=== PATIENT | male | born 1950 | race Caucasian/White ===

== ENCOUNTER → 2019-07-24 15:50 | Outpatient (CLI) | payer OTHER, MEDICARE, SELFPAY ==
--- NOTE | 2019-07-24 | DI.ECHO.S_ITS ---
[facility] +---------+ Hospital +---------+ : : [address] : : : : [id number] : : : : Phone: [phone] Echocardiogram Report + + :Name: TIARRA SOLOMON Study Date: 07/24/2019 Height: 69 in : :[facility] Weight: 244 lb : : Gender: Male BSA: 2.2 m2 : :: 1950 Age: 68 yrs BP: 142/84 mmHg: :Reason For Study: CAD : : Performed By: Star Moscoso : :Referring: MARIE CORDOVA : + + Interpretation Summary Left ventricular systolic function is mildly reduced, 51% by biplane method. The basal to mid inferolateral wall is scarred and akinetic. The basal to mid inferior and inferoseptal wall is hypokinetic. The right ventricle is mildly dilated. Right ventricular systolic function is at the lower limits of normal. There is a mechanical mitral valve with mean gradient of 4 mmHg at heart rate of 58 bpm which is normal for this valve. the peak velocity is 1.4 m/s. No significant mitral regurgitation. There is no prior echocardiogram noted for this patient. Procedure: A two-dimensional transthoracic echocardiogram with color flow and Doppler was performed. The study quality was technically adequate. A contrast injection of Definity was performed to improve assessment of LV function. There is no prior echocardiogram noted for this patient. The patient was in normal sinus rhythm during the exam. Left Ventricle: The left ventricle is mildly dilated. There is normal left ventricular wall thickness. Left ventricular ejection fraction is estimated to be 50%. The basal to mid inferolateral wall is scarred and akinetic. The basal to mid inferior and inferoseptal wall is hypokinetic. Diastolic parameters suggest a relaxation abnormality of the left ventricle, consistent with probable normal filling pressures. Right Ventricle: The right ventricle is mildly dilated. Right ventricular systolic function is at the lower limits of normal. Atria: The left atrium is not well visualized. The right atrium is mildly dilated. There is no Doppler evidence for an interatrial shunt. Mitral Valve: There is a mechanical mitral valve. The valve cannot be adequately evaluated due to artifact. The mitral valve mean gradient is 4 mmHg. There is no mitral regurgitation noted. Aortic Valve: There is mild aortic valve sclerosis. The aortic valve is trileaflet. The aortic valve opens well. No aortic regurgitation is present. Tricuspid Valve: The tricuspid valve is normal in structure and function. There is trace tricuspid regurgitation. Pulmonary artery pressures cannot be estimated because of the lack of a measurable TR jet velocity. Pulmonic Valve: The pulmonic valve is not well visualized. There is mild to moderate pulmonic regurgitation. Great Vessels: The aortic root is normal size. The dimensions of the ascending aorta are normal. The pulmonary artery is normal size. The inferior vena cava was not well visualized. Pericardium/ Pleura There is no pericardial effusion. There is no pleural effusion. MMode/2D Measurements & Calculations LVIDd: 5.9 cm LVOT diam: 2.1 cm LVIDs: 4.8 cm Ao root diam: 3.1 cm FS: 18.7 % asc Aorta Diam: 3.0 cm IVSd: 1.1 cm LVPWd: 0.96 cm LV mayer. diameter/BSA (cm/m^2): 2.6 LV sys. diameter/BSA (cm/m^2): 2.1 RA long axis: 4.8 cm TAPSE: 1.8 cm RA area: 17.5 cm2 RA vol: 53.9 ml RA : 24.0 ml/m2 LVAd ap4: 38.2 cm2 LVAs ap4: 23.5 cm2 LVLs ap4: 8.7 cm Doppler Measurements & Calculations Ao V2 max: 111.2 cm/sec LVOT Max Herb: 78.1 cm/sec Ao V2 mean: 84.0 cm/sec LV V1 max P.4 mmHg Ao max P.9 mmHg LV V1 VTI: 19.4 cm Ao mean P.2 mmHg ABDIAS(I,D): 2.7 cm2 Ao V2 VTI: 25.2 cm ABDIAS(V,D): 2.5 cm2 sev ratio: 0.77 ABDIAS indexed to BSA (cm^2/m^2): 1.2 MV E max herb: 117.8 cm/sec PA V2 max: 70.4 cm/sec MV A max herb: 136.6 cm/sec PA V2 mean: 51.5 cm/sec MV E/A: 0.86 PA mean P.2 mmHg Med Peak E' Herb: 6.3 cm/sec PA Accel Time: 0.11 sec E/E' med: 18.7 Lat Peak E' Herb: 5.5 cm/sec E/E' lat: 21.2 E/e' average: 20.0 MV dec time: 0.45 sec MVA(VTI): 1.4 cm2 MV V2 mean: 93.1 cm/sec SV(LVOT): 68.4 ml MV mean P.8 mmHg MV V2 VTI: 47.5 cm MV P1/2t-pr_phl: 137.9 msec Electronically signed by: Jeb Agosto M.D. on Reading Physician:07/24/2019 07:20 PM
== END ==
PROVIDERS: Family Provider Family Medicine; PCP Family Medicine; Referring Provider Internal Medicine Cardiovascular Disease; Visit Provider Physician Assistant
DX: I35.8 Other nonrheumatic aortic valve disorders (principal); I37.1 Nonrheumatic pulmonary valve insufficiency; I25.10 Atherosclerotic heart disease of native coronary artery without angina pectoris
CPT/HCPCS: 93306; Q9957

== ENCOUNTER 2020-03-22 12:07 | Observation (INO) | payer MEDICARE, OTHER, SELFPAY ==
[2020-03-22] VITALS (13 sets, daily range): BP systolic 102–127; BP diastolic 63–72; PULSE 74–95; RESP 12–20; TEMP 36.7–37.3; O2SAT 96–100; BMI 31.0
--- NOTE | 2020-03-22 12:38 | ED.GIBLEED ---
HPI - GI Bleed General Chief complaint: GI Bleed Stated complaint: blood in urine/stool Time Seen by Provider: 03/22/20 12:28 Source: patient Mode of arrival: Ambulatory Limitations: no limitations History of Present Illness HPI Narrative: Patient is a 69-year-old male on Coumadin for mitral valve presenting with bright red bloody stools. He said he had multiple episodes yesterday and he has had at least 5 today. He has even shown me picture of them. He denies any dizziness lightheadedness shortness of breath heart palpitations or abdominal pain. He actually had a prostate biopsy done week ago he was bridging with Lovenox but is back on Coumadin. MD complaint: gross hematochezia Related Data Home Medications Medication Instructions Recorded Confirmed atorvastatin 40 mg tablet 40 mg PO DAILY 01/23/20 03/22/20 benazepril 5 mg tablet 5 mg PO DAILY 01/23/20 03/22/20 furosemide 20 mg tablet 10 mg PO QAM 01/23/20 03/22/20 metoprolol tartrate 25 mg tablet 25 mg PO DAILY 01/23/20 03/22/20 spironolactone 25 mg tablet 25 mg PO DAILY 01/23/20 03/22/20 warfarin 5 mg tablet 5 mg PO DAILY 01/23/20 03/22/20 insulin glargine [Basaglar KwikPen 30 unit SUBCUT BEDTIME 03/22/20 03/22/20 U-100 Insulin] Allergies Allergy/AdvReac Type Severity Reaction Status Date / Time No Known Drug Allergies Allergy Verified 03/22/20 12:17 Review of Systems Review of Systems Narrative: GENERAL: Denies chills, fatigue, malaise, fever, sweats, travel HEENT: Denies sinus pain, ear pain, sore throat, difficulty swallowing, neck pain RESPIRATORY: Denies dyspnea, cough, wheezing, hemoptysis, sputum. CARDIOVASCULAR: Denies chest pain, palpitations, orthopnea, edema GASTROINTESTINAL: See HPI : Denies dysuria, frequency, incontinence, hematuria, urinary retention, flank pain. MUSCULOSKELETAL: Denies weakness, joint pain, or bony pain SKIN: No rash, no erythema, no pruritus NEUROLOGIC: Denies weakness, dizziness, headache, numbness, change in speech, confusion PSYCHIATRIC: No concerning psychosocial issues. 12 point review of systems is negative except for those stated above and HPI Patient History Medical History Allergic rhinitis (Chronic) Bypass graft stenosis (Acute) CAD (coronary artery disease) (Chronic) CHF (congestive heart failure) (Acute) Cholecystectomy planned (Acute) Chronic pain syndrome (Chronic) COPD (chronic obstructive pulmonary disease) (Chronic) Coronary stent patent (Acute) Degenerative joint disease (DJD) of lumbar spine (Chronic) Elevated PSA (Acute) Elevated PSA (Acute) HTN (hypertension), benign (Chronic) Kidney stone (Acute) Lumbar radiculopathy (Acute) Obesity (BMI 30-39.9) (Chronic Unknown) Obstructive sleep apnea (Chronic ~1999) Osteoarthritis of both knees (Chronic) Spondylolisthesis (Chronic) Spondylolisthesis at L4-L5 level (Acute) TIA (transient ischemic attack) (Acute) Ventral hernia (Chronic) Surgical History Coronary angioplasty status (Acute) H/O mitral valve replacement (Acute) H/O mitral valve replacement with mechanical valve (Acute) Heart valve replaced (Acute) Vasectomy status (Acute) Social History household members: spouse Smoking Status: Former smoker alcohol intake: current caffeine: Yes Smoking Status: Former smoker alcohol intake frequency: 0-2 drinks per day Substance Use Type: does not use Exam Initial Vital Signs Initial Vital Signs: Vital Signs Temperature 98.1 F 03/22/20 12:13 Pulse Rate 95 H 03/22/20 12:13 Respiratory Rate 18 03/22/20 12:13 Blood Pressure 127/72 03/22/20 12:13 Pulse Oximetry 98 03/22/20 12:13 GENERAL: Alert well-appearing middle-aged male and in no acute distress. HEENT: Head atraumatic,EOMI, pupils reactive, face symmetric, moist mucous membranes CARDIOVASCULAR: Regular rate and rhythm without murmurs, rubs or gallops. RESPIRATORY: Breath sounds equal bilaterally, no wheezes rales or rhonchi. ABDOMEN: Soft, nontender. Normoactive bowel sounds all 4 quadrants. No guarding or rebound. RECTAL: deferred + photo EXTREMITIES: Normal range of motion, no clubbing or edema. Neurovascularly intact NEUROLOGICAL: Alert and oriented x4.Normal gait and speech. Cranial nerves II through XII grossly intact. SKIN: Bruising noted on abdomen Course Orders Ordered: ED Orders 03/22/20 12:26 EKG-12 Lead Stat 03/22/20 12:46 Complete Blood Count AUTO DIFF Stat Comprehensive Metabolic Panel Stat Lactate (Lactic Acid) Stat Partial Thromboplastin Time Stat Prothrombin Time INR Stat 03/22/20 13:37 CT chest abd pel w con Stat 03/22/20 13:48 COVID19 -ED/INPAT/OR/L&D Stat 03/22/20 14:30 Urine Culture Stat Urine Microscopic Stat Lactated Ringer's (Lactated Ringers) 1,000 mls @ 42 mls/hr IV NOW ONE Stop: 03/23/20 16:47 Last Infusion: 03/22/20 19:15 Dose: 0 mls/hr Documented by: Admin: 03/22/20 17:00 Dose: 42 mls/hr Documented by: SNOW Morphine Sulfate (Morphine) 2 mg IV Q4HR PRN PRN Reason: Pain, Moderate (4-6) Naloxone HCl (Narcan) 0.2 mg IV Q2MIN PRN PRN Reason: Opiate Reversal Ondansetron HCl (Zofran) 4 mg IV Q8HR PRN PRN Reason: Nausea And Vomiting Discontinued Medications Fentanyl (Sublimaze) 250 mcg IV NOW ONE Stop: 03/22/20 19:05 Last Admin: 03/22/20 19:04 Dose: 150 mcg Documented by: CLARA Midazolam HCl (Versed) 5 mg IV NOW ONE Stop: 03/22/20 19:03 Last Admin: 03/22/20 19:03 Dose: 5 mg Documented by: CLARA Pantoprazole Sodium (Protonix) 80 mg IV NOW ONE Stop: 03/22/20 12:19 Last Admin: 03/22/20 12:53 Dose: 80 mg Documented by: DINORAH Phytonadione (Mephyton) 5 mg PO NOW ONE Stop: 03/22/20 13:26 Last Admin: 03/22/20 13:30 Dose: 5 mg Documented by: DINORAH Vital Signs Vital signs: Vital Signs - 8 hr 03/22/20 12:13 03/22/20 12:24 03/22/20 12:30 Temperature 98.1 F Pulse Rate 95 H 83 81 Respiratory Rate 18 15 15 Blood Pressure 127/72 120/69 111/64 Pulse Oximetry 98 100 98 03/22/20 13:00 03/22/20 13:30 03/22/20 14:00 Temperature Pulse Rate 78 78 74 Respiratory Rate 12 17 17 Blood Pressure 106/66 115/64 Pulse Oximetry 97 100 100 MDM - GI Bleed Lab Data Attestation: I reviewed the patient's lab results. Result diagrams: 03/22/20 12:46 03/22/20 12:46 Labs: Lab Results 03/22/20 03/22/20 03/22/20 Range/Units 12:46 12:46 12:46 WBC 10.2 (4.5-11.0) X10^3/uL RBC 4.46 L (4.5-5.9) X10^6/uL Hgb 12.1 L (13.5-17.5) g/dL Hct 35.7 L (41-53) % MCV 80.2 (80-100) fL MCH 27.2 (26-34) PG MCHC 33.9 (30-36) % RDW 14.6 (11.6-14.8) % Plt Count 402 H (150-400) X10^3/uL Neut % (Auto) 72.2 (50-75) % Lymph % (Auto) 15.9 L (25-40) % Victoria % (Auto) 9.0 (3-14) % Eos % (Auto) 1.5 L (2-4) % Baso % (Auto) 1.4 (0-2) % Neut # (Auto) 7400 H (3136-3436) /uL Lymph # (Auto) 1600 (0403-4699) /uL Victoria # (Auto) 900 (0-900) /uL Eos # (Auto) 200 (0-450) /uL Baso # (Auto) 100 (0-100) /uL PT 58.0 H (10.1-12.7) SECONDS INR 4.9 H* (0.9-1.3) APTT 49 H (26.4-36.2) SECONDS Sodium 133 L (137-145) mmol/L Potassium 4.3 (3.4-5.1) mmol/L Chloride 99 (98-107) mmol/L Carbon Dioxide 27 (22-32) mmol/L BUN 16 (9-20) mg/dL Creatinine 1.00 (0.66-1.25) mg/dL Estimated GFR > 60.0 (>60) mL/min BUN/Creatinine Ratio 16.0 (6-22) Glucose 159 H (80-110) mg/dL Lactate (0.7-2.1) mmol/L Calcium 9.1 (8.4-10.2) mg/dL Total Bilirubin 0.7 (0.2-1.3) mg/dL AST 40 (17-59) IU/L ALT 66 H (<50) IU/L Alkaline Phosphatase 418 H (38-126) U/L Total Protein 7.6 (6.3-8.2) g/dL Albumin 3.7 (3.5-5.0) g/dL Globulin 3.9 (1.7-4.1) g/dL Albumin/Globulin Ratio 0.9 L (1.0-2.8) Urine RBC (0-5/HPF) Urine WBC (0-5/HPF) Urine Bacteria (None) Ur Culture Indicated? COVID-19 PCR (Negative) 03/22/20 03/22/20 03/22/20 Range/Units 12:46 13:48 14:30 WBC (4.5-11.0) X10^3/uL RBC (4.5-5.9) X10^6/uL Hgb (13.5-17.5) g/dL Hct (41-53) % MCV (80-100) fL MCH (26-34) PG MCHC (30-36) % RDW (11.6-14.8) % Plt Count (150-400) X10^3/uL Neut % (Auto) (50-75) % Lymph % (Auto) (25-40) % Victoria % (Auto) (3-14) % Eos % (Auto) (2-4) % Baso % (Auto) (0-2) % Neut # (Auto) (6665-9198) /uL Lymph # (Auto) (5483-9353) /uL Victoria # (Auto) (0-900) /uL Eos # (Auto) (0-450) /uL Baso # (Auto) (0-100) /uL PT (10.1-12.7) SECONDS INR (0.9-1.3) APTT (26.4-36.2) SECONDS Sodium (137-145) mmol/L Potassium (3.4-5.1) mmol/L Chloride (98-107) mmol/L Carbon Dioxide (22-32) mmol/L BUN (9-20) mg/dL Creatinine (0.66-1.25) mg/dL Estimated GFR (>60) mL/min BUN/Creatinine Ratio (6-22) Glucose (80-110) mg/dL Lactate 1.0 (0.7-2.1) mmol/L Calcium (8.4-10.2) mg/dL Total Bilirubin (0.2-1.3) mg/dL AST (17-59) IU/L ALT (<50) IU/L Alkaline Phosphatase (38-126) U/L Total Protein (6.3-8.2) g/dL Albumin (3.5-5.0) g/dL Globulin (1.7-4.1) g/dL Albumin/Globulin Ratio (1.0-2.8) Urine RBC >100/hpf H (0-5/HPF) Urine WBC 5-10/hpf H (0-5/HPF) Urine Bacteria Occasional (0-1) (None) Ur Culture Indicated? Specimen cultured COVID-19 PCR Negative (Negative) Urine Dip Bedside Urine Glucose Negative Bedside Urine Bilirubin - Negative Bedside Urine Ketone - Negative Urine Specific [place] 1.005 Bedside Urine Occult Blood +++ Bedside Urine pH 7.0 Bedside Urine Protein - Negative Bedside Urine Urobilinogen +/- 1mg Bedside Urine Nitrite - Negative Bedside Urine Leukocytes - Negative Esterase Imaging Data CT scan - abdomen/pelvis: Radiologist's Impression: PROCEDURE: CT CHEST ABD PEL W CON INDICATIONS: prostate cancer screen and GI bleed TECHNIQUE: After the administration of intravenous contrast, 5 mm thick sections acquired from the lung apices to the symphysis. 5 mm coronal and sagittal reformats were performed, with additional 7 mm MIP reformats through the lungs. For radiation dose reduction, the following was used: automated exposure control, adjustment of mA and/or kV according to patient size. COMPARISON: None. FINDINGS: Image quality: Excellent. CHEST: Lungs and pleura: No acute airspace opacities. 3 millimeters subpleural nodule noted in the left lung base (series 4, image 55). Apical predominant centrilobular emphysematous disease. No pleural effusions or pneumothorax. Central and peripheral airways appear patent and normal in caliber. Mediastinum: Heart size is normal. Atherosclerotic calcifications are noted in the aorta, great vessels and the coronary vasculature. Mitral valve prosthesis noted No pericardial effusion. No mediastinal or hilar adenopathy by size criteria. Thoracic aorta and central pulmonary arteries are normal in size. Esophagus is normal in caliber. Small hiatal hernia. Chest wall: No axillary or supraclavicular adenopathy by size criteria. Thyroid gland is normal. ABDOMEN: Solid organs: Liver is normal in size and enhancement. Gallbladder is surgically absent. Biliary system is non dilated. Pancreas enhances normally. Spleen is normal in size and enhancement. No adrenal nodules. Kidneys demonstrate normal size and enhancement, without hydronephrosis. 5.5 centimeter exophytic left renal cyst. Peritoneum and bowel: Bowel loops demonstrate normal caliber. Circumferential wall thickening involving the rectum. Scattered diverticuli noted in the colon without evidence of diverticulitis. No free fluid or air. The appendix is normal. Nodes and vessels: No retroperitoneal or mesenteric adenopathy by size criteria. Aorta and inferior vena cava are normal in size. Scattered atherosclerotic calcifications involving the abdominal and pelvic vasculature. Miscellaneous: No ventral hernias. PELVIS: Genitourinary: Bladder wall thickness is normal. Miscellaneous: No inguinal hernias or adenopathy. Bones: Scattered sclerotic lesions noted in the osseous skeleton most compatible with metastatic disease. No vertebral body compression fractures. IMPRESSION: 1. Circumferential wall thickening involving the rectum which could be secondary to inflammatory/infectious process versus neoplastic process including rectal carcinoma. Recommend sigmoidoscopy/colonoscopy or barium contrasted enema for further evaluation. 2. Numerous sclerotic lesions scattered throughout the osseous skeleton compatible with extensive osseous metastatic disease. 3. Colonic diverticulosis without evidence diverticulitis. 4. Atherosclerosis including the coronary vasculature. 5. 3 millimeter left lower lobe subpleural nodule. Recommend follow-up CT scan of the chest in 3 months. 6. No lymphadenopathy based on size criteria. Dictated by: Pamela Escalona MD, PhD on 03/22/2020 at 13:52 MDM Narrative Medical decision making narrative: Dr. Joyner called he did prostate biopsy 2 weeks ago. He said that there may been some issues with bridging Lovenox Coumadin. He has likely metastatic disease and has not yet had imaging for staging. Recommends chest abdomen pelvis. Dr. Cummins consulted, will scope later this evening Dr. salas accepts for admission Discharge Plan Departure Patient Disposition: Admitted as Observation Clinical Impression: Acute GI bleeding Discharge Date/Time: 03/22/20 16:17 Referrals: Tristin Guerra MD [Primary Care Provider] - Admit Date/Time: 03/22/20 14:47 Admit Provider: Ken Gomez
[2020-03-22] MEDS: PANTOPRAZOLE 40 MG VIAL 80 MG IV (12:53)
[2020-03-22 12:54] LABS: Add Manual Diff / Slide Review NO; Basophils Absolute Auto 100 /uL (0-100); Basophils Percent Auto 1.4 % (0-2); Eosinophils Absolute Auto 200 /uL (0-450); Eosinophils Percent Auto 1.5 % (2-4); Hematocrit 35.7 % (41-53); Hemoglobin 12.1 g/dL (13.5-17.5); Lymphocytes Absolute Auto 1600 /uL (1100-4500); Lymphocytes Percent Auto 15.9 % (25-40); Mean Corpuscular HGB Conc 33.9 % (30-36); Mean Corpuscular Hemoglobin 27.2 PG (26-34); Mean Corpuscular Volume 80.2 fL (80-100); Monocytes Absolute Auto 900 /uL (0-900); Neutrophils Absolute Auto 7400 /uL (1500-7000); Neutrophils Percent Auto 72.2 % (50-75); Platelet Count 402 X10^3/uL (150-400); Red Blood Cell Count 4.46 X10^6/uL (4.5-5.9); Red Cell Distribution Width 14.6 % (11.6-14.8); White Blood Cell Count 10.2 X10^3/uL (4.5-11.0)
[2020-03-22 13:04] LABS: PTT Partial Thromboplastin Tim 49 SECONDS (26.4-36.2)
[2020-03-22 13:06] LABS: Alanine Aminotransferase 66 IU/L (<50); Albumin 3.7 g/dL (3.5-5.0); Albumin Globulin Ratio 0.9 (1.0-2.8); Alkaline Phosphatase 418 U/L (38-126); Aspartate Aminotransferase 40 IU/L (17-59); Bilirubin Total 0.7 mg/dL (0.2-1.3); Blood Urea Nitrogen 16 mg/dL (9-20); Calcium 9.1 mg/dL (8.4-10.2); Carbon Dioxide 27 mmol/L (22-32); Chloride 99 mmol/L (98-107); Estimated Glomerular Filt Rate > 60.0 mL/min (>60); Globulin 3.9 g/dL (1.7-4.1); Glucose 159 mg/dL (80-110); HEMOLYSIS < 15 (0-50); Potassium 4.3 mmol/L (3.4-5.1); Sodium 133 mmol/L (137-145); Total Protein 7.6 g/dL (6.3-8.2)
[2020-03-22 13:22] LABS: INR 4.9 (0.9-1.3)
[2020-03-22] MEDS: PHYTONADIONE (VIT K1) 5 MG TABLET PO (13:30)
--- NOTE | 2020-03-22 13:37 | DI.CT.S_ITS ---
PROCEDURE: CT CHEST ABD PEL W CON INDICATIONS: prostate cancer screen and GI bleed TECHNIQUE: After the administration of intravenous contrast, 5 mm thick sections acquired from the lung apices to the symphysis. 5 mm coronal and sagittal reformats were performed, with additional 7 mm MIP reformats through the lungs. For radiation dose reduction, the following was used: automated exposure control, adjustment of mA and/or kV according to patient size. COMPARISON: None. FINDINGS: Image quality: Excellent. CHEST: Lungs and pleura: No acute airspace opacities. 3 millimeters subpleural nodule noted in the left lung base (series 4, image 55). Apical predominant centrilobular emphysematous disease. No pleural effusions or pneumothorax. Central and peripheral airways appear patent and normal in caliber. Mediastinum: Heart size is normal. Atherosclerotic calcifications are noted in the aorta, great vessels and the coronary vasculature. Mitral valve prosthesis noted No pericardial effusion. No mediastinal or hilar adenopathy by size criteria. Thoracic aorta and central pulmonary arteries are normal in size. Esophagus is normal in caliber. Small hiatal hernia. Chest wall: No axillary or supraclavicular adenopathy by size criteria. Thyroid gland is normal. ABDOMEN: Solid organs: Liver is normal in size and enhancement. Gallbladder is surgically absent. Biliary system is non dilated. Pancreas enhances normally. Spleen is normal in size and enhancement. No adrenal nodules. Kidneys demonstrate normal size and enhancement, without hydronephrosis. 5.5 centimeter exophytic left renal cyst. Peritoneum and bowel: Bowel loops demonstrate normal caliber. Circumferential wall thickening involving the rectum. Scattered diverticuli noted in the colon without evidence of diverticulitis. No free fluid or air. The appendix is normal. Nodes and vessels: No retroperitoneal or mesenteric adenopathy by size criteria. Aorta and inferior vena cava are normal in size. Scattered atherosclerotic calcifications involving the abdominal and pelvic vasculature. Miscellaneous: No ventral hernias. PELVIS: Genitourinary: Bladder wall thickness is normal. Miscellaneous: No inguinal hernias or adenopathy. Bones: Scattered sclerotic lesions noted in the osseous skeleton most compatible with metastatic disease. No vertebral body compression fractures. IMPRESSION: 1. Circumferential wall thickening involving the rectum which could be secondary to inflammatory/infectious process versus neoplastic process including rectal carcinoma. Recommend sigmoidoscopy/colonoscopy or barium contrasted enema for further evaluation. 2. Numerous sclerotic lesions scattered throughout the osseous skeleton compatible with extensive osseous metastatic disease. 3. Colonic diverticulosis without evidence diverticulitis. 4. Atherosclerosis including the coronary vasculature. 5. 3 millimeter left lower lobe subpleural nodule. Recommend follow-up CT scan of the chest in 3 months. 6. No lymphadenopathy based on size criteria. Dictated by: Pamela Escalona MD, PhD on 03/22/2020 at 13:52 Approved by: Pamela Escalona MD, PhD on 03/22/2020 at 14:02
--- NOTE | 2020-03-22 13:47 | PM.CN ---
History of Present Illness Consult details Date Patient Seen: 03/22/20 Time Patient Seen: 13:52 Chief complaint: blood in urine/stool Narrative: 69 y.o man on Warfarin for a mechanical mitral valve who is sp prostate biopsy 2 weeks ago now with blood per rectum. He was appropriately bridged with Lovenox to Warfarin for the procedure. He has been passing bright red blood for the past 2 days, INR today 4.9. No prior colonoscopy no history of intestinal malignancy. Meds Home Medications and Allergies Home Medications Medication Instructions Recorded Confirmed Type atorvastatin 40 mg tablet 40 mg PO DAILY 01/23/20 03/22/20 History benazepril 5 mg tablet 5 mg PO DAILY 01/23/20 03/22/20 History furosemide 20 mg tablet 10 mg PO QAM 01/23/20 03/22/20 History metoprolol tartrate 25 mg tablet 25 mg PO DAILY 01/23/20 03/22/20 History spironolactone 25 mg tablet 25 mg PO DAILY 01/23/20 03/22/20 History warfarin 5 mg tablet 5 mg PO DAILY 01/23/20 03/22/20 History insulin glargine [Basaglar KwikPen 30 unit SUBCUT BEDTIME 03/22/20 03/22/20 History U-100 Insulin] Allergies Allergy/AdvReac Type Severity Reaction Status Date / Time No Known Drug Allergies Allergy Verified 03/22/20 12:17 Review of Systems Review of Systems Narrative: A 10 point review of systems is negative except as noted in the HPI Exam Vital Signs (past 8 hours): - 03/22/20 12:13 03/22/20 12:24 03/22/20 12:30 Temperature 98.1 F Pulse Rate 95 H 83 81 Respiratory Rate 18 15 15 Blood Pressure 127/72 120/69 111/64 Pulse Oximetry 98 100 98 03/22/20 13:00 Temperature Pulse Rate 78 Respiratory Rate 12 Blood Pressure 106/66 Pulse Oximetry 97 Oxygen Delivery Method Room Air Narrative Exam Narrative: General-no acute distress, well nourished HEENT-moist mucous membranes, no scleral icterus Neck-supple, no lymphadenopathy Chest- non labored respirations, clear to auscultation bilaterally Cardiac-regular rate no peripheral edema Abdomen-soft, nontender, non distended Extremities-warm, well perfused Neurological-alert and oriented, no focal deficits Objective Labs Result Diagrams: 03/22/20 12:46 03/22/20 12:46 Labs: Laboratory Results - last 24 hr 03/22/20 03/22/20 03/22/20 12:46 12:46 12:46 WBC 10.2 RBC 4.46 L Hgb 12.1 L Hct 35.7 L MCV 80.2 MCH 27.2 MCHC 33.9 RDW 14.6 Plt Count 402 H Neut % (Auto) 72.2 Lymph % (Auto) 15.9 L Isabella % (Auto) 9.0 Eos % (Auto) 1.5 L Baso % (Auto) 1.4 Neut # (Auto) 7400 H Lymph # (Auto) 1600 Isabella # (Auto) 900 Eos # (Auto) 200 Baso # (Auto) 100 PT 58.0 H INR 4.9 H* APTT 49 H Sodium 133 L Potassium 4.3 Chloride 99 Carbon Dioxide 27 BUN 16 Creatinine 1.00 Estimated GFR > 60.0 BUN/Creatinine Ratio 16.0 Glucose 159 H Lactate Calcium 9.1 Total Bilirubin 0.7 AST 40 ALT 66 H Alkaline Phosphatase 418 H Total Protein 7.6 Albumin 3.7 Globulin 3.9 Albumin/Globulin Ratio 0.9 L 03/22/20 12:46 WBC RBC Hgb Hct MCV MCH MCHC RDW Plt Count Neut % (Auto) Lymph % (Auto) Isabella % (Auto) Eos % (Auto) Baso % (Auto) Neut # (Auto) Lymph # (Auto) Isabella # (Auto) Eos # (Auto) Baso # (Auto) PT INR APTT Sodium Potassium Chloride Carbon Dioxide BUN Creatinine Estimated GFR BUN/Creatinine Ratio Glucose Lactate 1.0 Calcium Total Bilirubin AST ALT Alkaline Phosphatase Total Protein Albumin Globulin Albumin/Globulin Ratio Assessment & Plan Assessment & Plan narrative: 69 y.o man on Warfarin for a mechanical mitral valve 2 weeks after a prostate biopsy admitted with bright red blood per rectum. Hemodynamically stable, Hct at admission 36, INR 4.9. Plan -NPO/IVF -Theraputic colonoscopy today -COVID testing -Transfuse as needed
[2020-03-22 14:12] LABS: COVID19 -Nasal RAPID Negative (Negative)
[2020-03-22 15:00] LABS: Bacteria Urine Occasional (0-1); Culture Indicated Urine Specimen Cultured; RBC Urine >100/HPF (0-5/HPF); WBC Urine 5-10/HPF (0-5/HPF)
--- NOTE | 2020-03-22 16:24 | PC.ADMIT ---
[email or web address] [facility] Unit D6 Admission Note: The patient,Keith Hsieh,69 y/o, was given written information regarding hospital policies, unit procedures and contact persons. Patient's smoking status: Former smoker. Vital Signs - 8 hr 03/22/20 12:13 03/22/20 12:24 03/22/20 12:30 Temperature 98.1 F Pulse Rate 95 H 83 81 Respiratory Rate 18 15 15 Blood Pressure 127/72 120/69 111/64 Pulse Oximetry 98 100 98 03/22/20 13:00 03/22/20 13:30 03/22/20 14:00 Temperature Pulse Rate 78 78 74 Respiratory Rate 12 17 17 Blood Pressure 106/66 115/64 Pulse Oximetry 97 100 100 03/22/20 15:05 Temperature Pulse Rate 77 Respiratory Rate 15 Blood Pressure 118/68 Pulse Oximetry 99 Patient up from ED via stretcher. Patient was able to get off of the stretcher and ambulate to the AC bed, gait was steady. PACU here at 1620 to take patient down for a colonoscopy, patient aware and agreeable. Patient was a A&O, calm and cooperative.
[2020-03-22] MEDS: LACTATED RINGERS 1,000 ML 42 ML IV (17:00)
--- NOTE | 2020-03-22 19:01 | PM.OP.ENDO ---
Operative Date/Time/Diagnoses Date of procedure: 03/22/20 Time of procedure: 19:01 Pre-op diagnosis: rectal bleeding Post-op diagnosis: same Procedure & Clinicians Study performed: sigmoidoscopy Same procedure as scheduled: Yes Indications: 69M on anticoagulation 2 weeks after prostate biopsy with rectal bleeding Surgeon: Sharad Cummins Procedure Notes SCOAP/Timeout: Performed Procedure in detail: Patient placed in left lateral recumbent position. Time out was performed. Procedural sedation was administered with Versed and Fentanyl. The colonoscopy scope was then placed into the anal canal the the lumen was insufflated with air. There was a large amount of clot within distal rectum. This was suctioned out and inspection demonstrated a persistent active bleeding source on the anterior aspect of the distal rectuml consistent with a prostate biopsy site. I attempted to use the loop electrocautery to cauterize source this was ineffective. Ultimately I placed two 11 mm hemoclips over the area of active bleeding and hemostasis was observed. Scope was carefully withdrawn. Sedation minutes: 20 Findings: other findings (rectal bleeding) Specimen(s): none sent Complications: none Impression: rectal bleeding Post-procedure Disposition: Acute Care
[2020-03-22] MEDS: MIDAZOLAM 5 MG/5 ML VIAL IV (19:03)
[2020-03-22] MEDS: fentaNYL 250 MCG/5 ML INJ IV (19:04)
[2020-03-22 20:39] LABS: Hemoglobin A1C% w Est Avg Glu 7.9 % (4.0-6.0)
--- NOTE | 2020-03-22 20:53 | PM.HP.1 ---
History of Present Illness History of Present Illness Date Patient Seen: 03/22/20 Time Patient Seen: 20:15 Chief complaint: blood in urine/stool Narrative: Keith Hsieh is a 69-year-old male with a history of mitral valve replacement and anticoagulated on warfarin, hypertension, coronary artery disease, atrial fibrillation, and prostate cancer developed rectal bleeding this morning. He had a prostate biopsy 2 weeks [address] and [address] Leal who directed him to come to the ED. He stated that he 1st noticed bleeding then had diarrhea and filled the toilet bowl full blood. He denies abdominal pain or cramping, nausea, shortness of breath, chest pain, dysuria or constipation. He is currently seen the local highway worker Dr. Rasmussen for new onset back pain and sciatica extending to his left leg. He states he was supposed to be having an MRI at some point in the near future. In the ED they did a CT scan of his chest, abdomen and pelvis which reported the followin. Circumferential wall thickening involving the rectum which could be secondary to inflammatory/infectious process versus neoplastic process including rectal carcinoma. Recommend sigmoidoscopy/colonoscopy or barium contrasted enema for further evaluation. 2. Numerous sclerotic lesions scattered throughout the osseous skeleton compatible with extensive osseous metastatic disease. 3. Colonic diverticulosis without evidence diverticulitis. 4. Atherosclerosis including the coronary vasculature. 5. 3 millimeter left lower lobe subpleural nodule. In the emergency department the patient was referred directly to surgery and was given vitamin K due to having a supratherapeutic INR of 4.9. He underwent sigmoidoscopy under general anesthesia which they did find bleeding add an active prostate biopsy site. Electric cautery was attempted but not successful and the patient's rectum was eventually clipped with success in stopping the bleeding. Currently the patient is afebrile, blood pressure is 102/67, heart rate 80, respiratory rate of 14, oxygen saturation of 99% on room air, he weighs 95.2 kg with a BMI of 31. WBC is 10.2, RBC 4.46, hemoglobin 12.1, hematocrit 35.7, platelet count of 402. He has an elevated INR of 4.9 and a PTT of 58, sodium is 133, potassium 4.3, chloride 99, CO2 27, BUN 16, creatinine 1.0, with a estimated GFR greater than 60, glucose is 159, he does have a hemoglobin A1c of 7.9, lactate is normal, calcium 9.1, bilirubin is 0.7, AST 40, ALT 66, alk-phos 118, there is presence of urine RBC and urine WBC and urine with small amount of bacteria that will be cultured, and the patient is COVID-19 negative. Patient History Medical History Allergic rhinitis (Chronic) Anticoagulated on warfarin (Acute) Bypass graft stenosis (Acute) CAD (coronary artery disease) (Chronic) CHF (congestive heart failure) (Acute) Cholecystectomy planned (Acute) Chronic pain syndrome (Chronic) COPD (chronic obstructive pulmonary disease) (Chronic) Coronary stent patent (Acute) Degenerative joint disease (DJD) of lumbar spine (Chronic) Elevated PSA (Acute) Elevated PSA (Acute) HTN (hypertension), benign (Chronic) Kidney stone (Acute) Lumbar radiculopathy (Acute) Obesity (BMI 30-39.9) (Chronic Unknown) Obstructive sleep apnea (Chronic ~1999) Osteoarthritis of both knees (Chronic) Spondylolisthesis (Chronic) Spondylolisthesis at L4-L5 level (Acute) TIA (transient ischemic attack) (Acute) Ventral hernia (Chronic) Surgical History Coronary angioplasty status (Acute) H/O mitral valve replacement (Acute) H/O mitral valve replacement with mechanical valve (Acute) Heart valve replaced (Acute) Vasectomy status (Acute) Family & Social History Family History Mother Alive and well Father Diabetes type 2, controlled Heart disease Grandfather Prostate cancer metastatic to bone Social History: household members spouse Prior Living Arrangements RV, currently building a home Safety & Behavioral: Feels Safe in Current Yes Environment Been Physically Hurt or No Threatened By a Person Suicidal Ideation Description None Suicide Plan Description No Plan Tobacco & Substance use: Smoking Status Former smoker 35+ year pack history, quit 20 years ago alcohol intake current alcohol intake frequency a few times a week Substance Use Type has tried CBD without effect on pain does not use Meds Home Medications and Allergies Home Medications Medication Instructions Recorded Confirmed Type atorvastatin 40 mg tablet 40 mg PO DAILY 01/23/20 03/22/20 History benazepril 5 mg tablet 5 mg PO DAILY 01/23/20 03/22/20 History furosemide 20 mg tablet 10 mg PO QAM 01/23/20 03/22/20 History metoprolol tartrate 25 mg tablet 25 mg PO DAILY 01/23/20 03/22/20 History spironolactone 25 mg tablet 25 mg PO DAILY 01/23/20 03/22/20 History warfarin 5 mg tablet 5 mg PO DAILY 01/23/20 03/22/20 History insulin glargine [Basaglar KwikPen 30 unit SUBCUT BEDTIME 03/22/20 03/22/20 History U-100 Insulin] Allergies Allergy/AdvReac Type Severity Reaction Status Date / Time No Known Drug Allergies Allergy Verified 03/22/20 12:17 Review of Systems Review of Systems ROS: Yes All systems reviewed with the patient and are negative except as otherwise documented Exam Vital Signs (past 8 hours): - 03/22/20 13:00 03/22/20 13:30 03/22/20 14:00 Temperature Pulse Rate 78 78 74 Respiratory Rate 12 17 17 Blood Pressure 106/66 115/64 Pulse Oximetry 97 100 100 03/22/20 15:05 03/22/20 16:05 03/22/20 16:34 Temperature 98.0 F 99.2 F Pulse Rate 77 75 88 Respiratory Rate 15 16 16 Blood Pressure 118/68 122/65 117/70 Pulse Oximetry 99 100 97 03/22/20 19:07 03/22/20 19:12 03/22/20 19:15 Temperature 98.2 F 98.0 F 98.0 F Pulse Rate 82 84 80 Respiratory Rate 20 17 14 Blood Pressure 102/63 118/66 102/67 Pulse Oximetry 96 98 99 Oxygen Delivery Method Room Air Oxygen Flow Rate 0 Narrative Exam Narrative: Gen: Alert, oriented, well-developed 69 y.o. male, just came up from the PACU HEENT: normocephalic, atraumatic, conjunctiva clear, sclera non-icteric, oral mucosa pink and moist Neck: supple, full ROM, no JVD, trachea is midline Resp: Lungs CTA, non-labored breathing CV: RRR, no murmur or rubs Abd: soft, non-tender, normoactive BTs Skin: no lesions or rashes, dry and intact Neuro: Alert and oriented X 4 w/no focal deficits. Speech clear and coherent. Extremities: moves all 4 extremities, is ambulatory, left-sided calf pain Psyche: normal mood and affect. Objective Labs Result Diagrams: 03/22/20 12:46 03/22/20 12:46 Labs: Laboratory Results - last 24 hr 03/22/20 03/22/20 03/22/20 12:46 12:46 12:46 WBC 10.2 RBC 4.46 L Hgb 12.1 L Hct 35.7 L MCV 80.2 MCH 27.2 MCHC 33.9 RDW 14.6 Plt Count 402 H Neut % (Auto) 72.2 Lymph % (Auto) 15.9 L [place] % (Auto) 9.0 Eos % (Auto) 1.5 L Baso % (Auto) 1.4 Neut # (Auto) 7400 H Lymph # (Auto) 1600 [place] # (Auto) 900 Eos # (Auto) 200 Baso # (Auto) 100 PT 58.0 H INR 4.9 H* APTT 49 H Sodium 133 L Potassium 4.3 Chloride 99 Carbon Dioxide 27 BUN 16 Creatinine 1.00 Estimated GFR > 60.0 BUN/Creatinine Ratio 16.0 Glucose 159 H Hemoglobin A1c Lactate Calcium 9.1 Total Bilirubin 0.7 AST 40 ALT 66 H Alkaline Phosphatase 418 H Total Protein 7.6 Albumin 3.7 Globulin 3.9 Albumin/Globulin Ratio 0.9 L Urine RBC Urine WBC Urine Bacteria Ur Culture Indicated? COVID-19 PCR 03/22/20 03/22/20 03/22/20 12:46 12:46 13:48 WBC RBC Hgb Hct MCV MCH MCHC RDW Plt Count Neut % (Auto) Lymph % (Auto) [place]eadle % (Auto) Eos % (Auto) Baso % (Auto) Neut # (Auto) Lymph # (Auto) [place] # (Auto) Eos # (Auto) Baso # (Auto) PT INR APTT Sodium Potassium Chloride Carbon Dioxide BUN Creatinine Estimated GFR BUN/Creatinine Ratio Glucose Hemoglobin A1c 7.9 H Lactate 1.0 Calcium Total Bilirubin AST ALT Alkaline Phosphatase Total Protein Albumin Globulin Albumin/Globulin Ratio Urine RBC Urine WBC Urine Bacteria Ur Culture Indicated? COVID-19 PCR Negative 03/22/20 14:30 WBC RBC Hgb Hct MCV MCH MCHC RDW Plt Count Neut % (Auto) Lymph % (Auto) [place]le % (Auto) Eos % (Auto) Baso % (Auto) Neut # (Auto) Lymph # (Auto) [place] # (Auto) Eos # (Auto) Baso # (Auto) PT INR APTT Sodium Potassium Chloride Carbon Dioxide BUN Creatinine Estimated GFR BUN/Creatinine Ratio Glucose Hemoglobin A1c Lactate Calcium Total Bilirubin AST ALT Alkaline Phosphatase Total Protein Albumin Globulin Albumin/Globulin Ratio Urine RBC >100/hpf H Urine WBC 5-10/hpf H Urine Bacteria Occasional (0-1) Ur Culture Indicated? Specimen cultured COVID-19 PCR Assessment & Plan Assessment & Plan narrative: Keith Hsieh is placed into observation for further workup and assessment of rectal bleeding. Rectal bleeding, acute and present on admission -Dr. Cummins involved in surgical management, appreciate consult -It has been clipped after having found to be bleeding from an active prostate biopsy site. Prostate cancer workup, present on admission -Finding concerning regarding rectal tissue thickening and bone metastisis -Findings will be discussed with the patient in the am Atrial fibrillation anticoagulated on warfarin, present on admission -Anticoagulation was reversed in the ED prior to the patient undergoing lower scoping -Holding warfarin tonight, will resume when patient's INR falls below 3.0 and does not have further signs of active bleeding -Continue rate control with metoprolol 25 mg po daily Essential hypertension, chronic, now with post-operative hypotension -Patient normally takes metoprolol and benazepril at night, these will be resumed in the am if his blood pressure supports it -holding diuretics Hyperlipidemia, chronic -He will continue his home dose of atorvastatin 40 mg po tonight Diabetes type 2 with an A1c of 7.9 indicating suboptimal control -Normally uses glargine 30 units at bedtime, will start with 15 units tonight. Consider adding additional 15 units in the am if blood glucose supports -Medium dose correctional insulin -Carb control diet Left calf pain, new and present on admission -patient has a higher risk of DVT or PE due to likely malignancy, will order a D-dimer and if positive, a doppler ultrasound for tomorrow -anticoagulation not indicated tonight VTE prophylaxis: Wells risk score: 1.0 Bilateral SCDs Consults: Dr. Cummins, consult and involvement is appreciated. Patient is observation status as his stay is not likely to exceed 2 midnights. FEN: LR at 42 ml/hour, carb controlled diet, BMP and magnesium in the am. Dispo: probable discharge to home Code Status: Full code as discussed with patient and his COVID-19 COVID-19 status: Negative Result date/Date tested (Pos, Neg/Pending): 03/22/20 Scores Wells' Criteria for PE Clinical signs and symptoms of DVT: No PE is #1 Dx or equally likely: No Heart rate > 100: No Immobilization at least 3 days or surg in previous 4 weeks: No History of PE or DVT: No Hemoptysis: No Malignancy w/Treatment within 6 months or palliative: Yes Wells' PE Score total: 1 Quality VTE Deep Vein Thrombosis/Pulmonary Embolism Present on Admission: No
[2020-03-22] MEDS: ATORVASTATIN 20 MG TABLET 40 MG PO (21:44)
[2020-03-22 22:01] LABS: D Dimer 615 ng/mL (<230)
[2020-03-22] MEDS: INSULIN GLARGINE 100 UNIT/ML 3ML PEN 15 UNIT SUBCUT (22:05)
--- NOTE | 2020-03-22 22:57 | PC.NURSE ---
pt reports having another bloody BM, pt reports it looks like fresh blood. This RN did not see it. placed a hat, will notify provider if he has another richard red blood BM. LR dc'd per provider. pt drinking plenty of water. no dizziness or lightheadedness. no abdominal pain. call light in reach. family at bedside.
[2020-03-23] VITALS (7 sets, daily range): BP systolic 110–125; BP diastolic 59–71; PULSE 84–96; RESP 16; TEMP 36.4–36.6; O2SAT 98
[2020-03-23 06:53] LABS: Add Manual Diff / Slide Review NO; Basophils Absolute Auto 200 /uL (0-100); Basophils Percent Auto 1.5 % (0-2); Eosinophils Absolute Auto 200 /uL (0-450); Eosinophils Percent Auto 1.9 % (2-4); Hematocrit 37.3 % (41-53); Hemoglobin 12.3 g/dL (13.5-17.5); Lymphocytes Absolute Auto 2200 /uL (1100-4500); Lymphocytes Percent Auto 18.7 % (25-40); Mean Corpuscular Hemoglobin 26.4 PG (26-34); Monocytes Absolute Auto 900 /uL (0-900); Monocytes Percent Auto 8.1 % (3-14); Neutrophils Absolute Auto 8200 /uL (1500-7000); Neutrophils Percent Auto 69.8 % (50-75); Platelet Count 441 X10^3/uL (150-400); Red Blood Cell Count 4.66 X10^6/uL (4.5-5.9); Red Cell Distribution Width 14.7 % (11.6-14.8); White Blood Cell Count 11.7 X10^3/uL (4.5-11.0)
[2020-03-23 06:57] LABS: INR 2.2 (0.9-1.3); Prothrombin Time 25.6 SECONDS (10.1-12.7)
[2020-03-23 07:03] LABS: Alanine Aminotransferase 63 IU/L (<50); Albumin 3.8 g/dL (3.5-5.0); Alkaline Phosphatase 406 U/L (38-126); Aspartate Aminotransferase 42 IU/L (17-59); BUN Creatinine Ratio 16.2 (6-22); Bilirubin Total 0.8 mg/dL (0.2-1.3); Bilirubin Unconjugated 0.7 mg/dL (0.0-1.1); Blood Urea Nitrogen 16 mg/dL (9-20); Calcium 9.2 mg/dL (8.4-10.2); Carbon Dioxide 31 mmol/L (22-32); Chloride 99 mmol/L (98-107); Estimated Glomerular Filt Rate > 60.0 mL/min (>60); Globulin 3.8 g/dL (1.7-4.1); Glucose 132 mg/dL (80-110); HEMOLYSIS < 15 (0-50); Magnesium 2.2 mg/dL (1.6-2.3); Potassium 4.9 mmol/L (3.4-5.1); Sodium 136 mmol/L (137-145); Total Protein 7.6 g/dL (6.3-8.2)
[2020-03-23] MEDS: SODIUM CHLORIDE 0.9% FLUSH 10 ML IV (09:52)
[2020-03-23] MEDS: METOPROLOL IR 25 MG TABLET PO (09:52)
[2020-03-23] MEDS: BENAZEPRIL 5 MG TABLET PO (09:52)
[2020-03-23] MEDS: INSULIN ASPART 100 UNIT/ML INSULN PEN SUBCUT (12:01)
[2020-03-23 12:23] LABS: Hematocrit 36.3 % (41-53); Hemoglobin 11.9 g/dL (13.5-17.5)
--- NOTE | 2020-03-23 13:06 | PM.DS.1 ---
History of Present Illness History of Present Illness Date Patient Seen: 03/23/20 Time Patient Seen: 13:06 Chief complaint: blood in urine/stool Narrative: As per MEGAN Shea: Keith Hsieh is a 69-year-old male with a history of mitral valve replacement and anticoagulated on warfarin, hypertension, coronary artery disease, atrial fibrillation, and prostate cancer developed rectal bleeding this morning. He had a prostate biopsy 2 weeks ago [address] Leal who directed him to come to the ED. He stated that he 1st noticed bleeding then had diarrhea and filled the toilet bowl full blood. He denies abdominal pain or cramping, nausea, shortness of breath, chest pain, dysuria or constipation. He is currently seen the local ruling machine feeder Dr. Rasmussen for new onset back pain and sciatica extending to his left leg. He states he was supposed to be having an MRI at some point in the near future. In the ED they did a CT scan of his chest, abdomen and pelvis which reported the followin. Circumferential wall thickening involving the rectum which could be secondary to inflammatory/infectious process versus neoplastic process including rectal carcinoma. Recommend sigmoidoscopy/colonoscopy or barium contrasted enema for further evaluation. 2. Numerous sclerotic lesions scattered throughout the osseous skeleton compatible with extensive osseous metastatic disease. 3. Colonic diverticulosis without evidence diverticulitis. 4. Atherosclerosis including the coronary vasculature. 5. 3 millimeter left lower lobe subpleural nodule. In the emergency department the patient was referred directly to surgery and was given vitamin K due to having a supratherapeutic INR of 4.9. He underwent sigmoidoscopy under general anesthesia which they did find bleeding add an active prostate biopsy site. Electric cautery was attempted but not successful and the patient's rectum was eventually clipped with success in stopping the bleeding. Currently the patient is afebrile, blood pressure is 102/67, heart rate 80, respiratory rate of 14, oxygen saturation of 99% on room air, he weighs 95.2 kg with a BMI of 31. WBC is 10.2, RBC 4.46, hemoglobin 12.1, hematocrit 35.7, platelet count of 402. He has an elevated INR of 4.9 and a PTT of 58, sodium is 133, potassium 4.3, chloride 99, CO2 27, BUN 16, creatinine 1.0, with a estimated GFR greater than 60, glucose is 159, he does have a hemoglobin A1c of 7.9, lactate is normal, calcium 9.1, bilirubin is 0.7, AST 40, ALT 66, alk-phos 118, there is presence of urine RBC and urine WBC and urine with small amount of bacteria that will be cultured, and the patient is COVID-19 negative. Discharge Providers Provider Date of admission: 03/22/20 14:47 Discharge Date: 03/23/20 Primary care physician: Tristin Jacobo MD Discharge provider: Ken Gomez DO Summary Hospital Course Discharge Diagnosis: Please see hospital course by problem list noted below. Hospital Course: Rectal bleeding, acute and present on admission -Dr. Cummins performed colonoscopy noted below. -Bleeding was noted from prostate biopsy site. This area was clipped and hemostasis was achieved. H/h remained stable after procedure and patient was discharged home. Prostate cancer workup, present on admission -Finding concerning regarding rectal tissue thickening and bone metastisis which was discussed with the patient. Further relayed to Dr. Larson after discharge. -given recent foot drop improved with steroids MRI was ordered, but could not be performed due to patient's mechanical valve per radiology. [facility], encouraged him to proceed with that plan. H/o Valve replacement anticoagulated on warfarin, present on admission -Anticoagulation was reversed in the ED prior to the patient undergoing lower scoping -supratherapeutic INR on admission. Given Vitamin K and improved to 2.2 the following morning. Safe to resume upon discharge. Essential hypertension, chronic, now with post-operative hypotension -no changes recommended. Hyperlipidemia, chronic -no changes were made to home medications. Diabetes type 2 with an A1c of 7.9 indicating suboptimal control -No medication changes recommended. Exam Vital Signs (past 8 hours): - 03/23/20 05:59 03/23/20 06:57 03/23/20 08:55 Temperature 97.5 F L 97.8 F Pulse Rate 96 H 84 Respiratory Rate 16 16 Blood Pressure 110/60 122/59 L Pulse Oximetry 98 98 98 03/23/20 10:00 03/23/20 12:36 Temperature 97.9 F Pulse Rate 86 Respiratory Rate 16 Blood Pressure 125/60 Pulse Oximetry 98 98 Oxygen Delivery Method Room Air Oxygen Flow Rate 0 Narrative Exam Narrative: Gen: Alert, oriented, well-developed 69 y.o. male, just came up from the PACU HEENT: normocephalic, atraumatic, conjunctiva clear, sclera non-icteric, oral mucosa pink and moist Neck: supple, full ROM, no JVD, trachea is midline Resp: Lungs CTA, non-labored breathing CV: RRR, no murmur or rubs Abd: soft, non-tender, normoactive BTs Skin: no lesions or rashes, dry and intact Neuro: Alert and oriented X 4 w/no focal deficits. Speech clear and coherent. Extremities: moves all 4 extremities, is ambulatory, no edema. Psyche: normal mood and affect. Objective Labs Result Diagrams: 03/23/20 12:03 03/23/20 05:41 Labs: Laboratory Results - last 24 hr 03/22/20 03/22/20 03/22/20 12:46 12:46 12:46 WBC RBC Hgb Hct MCV MCH MCHC RDW Plt Count Neut % (Auto) Lymph % (Auto) [place] % (Auto) Eos % (Auto) Baso % (Auto) Neut # (Auto) Lymph # (Auto) [place] # (Auto) Eos # (Auto) Baso # (Auto) PT 58.0 H INR 4.9 H* APTT 49 H D-Dimer Sodium 133 L Potassium 4.3 Chloride 99 Carbon Dioxide 27 BUN 16 Creatinine 1.00 Estimated GFR > 60.0 BUN/Creatinine Ratio 16.0 Glucose 159 H Hemoglobin A1c Lactate 1.0 Calcium 9.1 Magnesium Total Bilirubin 0.7 Conjugated Bilirubin Unconjugated Bilirubin AST 40 ALT 66 H Alkaline Phosphatase 418 H Total Protein 7.6 Albumin 3.7 Globulin 3.9 Albumin/Globulin Ratio 0.9 L Urine RBC Urine WBC Urine Bacteria Ur Culture Indicated? COVID-19 PCR 03/22/20 03/22/20 03/22/20 12:46 13:48 14:30 WBC RBC Hgb Hct MCV MCH MCHC RDW Plt Count Neut % (Auto) Lymph % (Auto) [place] % (Auto) Eos % (Auto) Baso % (Auto) Neut # (Auto) Lymph # (Auto) [place] # (Auto) Eos # (Auto) Baso # (Auto) PT INR APTT D-Dimer Sodium Potassium Chloride Carbon Dioxide BUN Creatinine Estimated GFR BUN/Creatinine Ratio Glucose Hemoglobin A1c 7.9 H Lactate Calcium Magnesium Total Bilirubin Conjugated Bilirubin Unconjugated Bilirubin AST ALT Alkaline Phosphatase Total Protein Albumin Globulin Albumin/Globulin Ratio Urine RBC >100/hpf H Urine WBC 5-10/hpf H Urine Bacteria Occasional (0-1) Ur Culture Indicated? Specimen cultured COVID-19 PCR Negative 03/22/20 03/23/20 03/23/20 21:39 05:41 05:41 WBC 11.7 H RBC 4.66 Hgb 12.3 L Hct 37.3 L MCV 80.0 MCH 26.4 MCHC 33.0 RDW 14.7 Plt Count 441 H Neut % (Auto) 69.8 Lymph % (Auto) 18.7 L [place] % (Auto) 8.1 Eos % (Auto) 1.9 L Baso % (Auto) 1.5 Neut # (Auto) 8200 H Lymph # (Auto) 2200 [place] # (Auto) 900 Eos # (Auto) 200 Baso # (Auto) 200 H PT 25.6 H D INR 2.2 H APTT D-Dimer 615 H Sodium Potassium Chloride Carbon Dioxide BUN Creatinine Estimated GFR BUN/Creatinine Ratio Glucose Hemoglobin A1c Lactate Calcium Magnesium Total Bilirubin Conjugated Bilirubin Unconjugated Bilirubin AST ALT Alkaline Phosphatase Total Protein Albumin Globulin Albumin/Globulin Ratio Urine RBC Urine WBC Urine Bacteria Ur Culture Indicated? COVID-19 PCR 03/23/20 03/23/20 05:41 12:03 WBC RBC Hgb 11.9 L Hct 36.3 L MCV MCH MCHC RDW Plt Count Neut % (Auto) Lymph % (Auto) [place] % (Auto) Eos % (Auto) Baso % (Auto) Neut # (Auto) Lymph # (Auto) [place] # (Auto) Eos # (Auto) Baso # (Auto) PT INR APTT D-Dimer Sodium 136 L Potassium 4.9 Chloride 99 Carbon Dioxide 31 BUN 16 Creatinine 0.99 Estimated GFR > 60.0 BUN/Creatinine Ratio 16.2 Glucose 132 H Hemoglobin A1c Lactate Calcium 9.2 Magnesium 2.2 Total Bilirubin 0.8 Conjugated Bilirubin 0.0 Unconjugated Bilirubin 0.7 AST 42 ALT 63 H Alkaline Phosphatase 406 H Total Protein 7.6 Albumin 3.8 Globulin 3.8 Albumin/Globulin Ratio 1.0 Urine RBC Urine WBC Urine Bacteria Ur Culture Indicated? COVID-19 PCR Discharge Plan Discharge Plan Patient Disposition: Home Discharge comment: You were admitted to the hospital with rectal bleeding. You underwent a colonoscopy and had some clips placed. Your blood counts were stable and you are safe to discharge home. Please return if you have bleeding again. [facility] and you likely will need a referral to an oncologist. No medication changes are necessary but you may need adjustments of your coumadin dosing as you were given vitamin K to reverse an INR of 5.4 on admission. Discharge orders & Medications Prescriptions: Continued atorvastatin 40 mg tablet 40 mg PO DAILY RF: 0 benazepril 5 mg tablet 5 mg PO DAILY RF: 0 furosemide [Lasix] 20 mg tablet 10 mg PO QAM RF: 0 metoprolol tartrate 25 mg tablet 25 mg PO DAILY RF: 0 spironolactone [Aldactone] 25 mg tablet 25 mg PO DAILY RF: 0 warfarin 5 mg tablet 5 mg PO DAILY RF: 0 Basaglar KwikPen U-100 Insulin 100 unit/mL (3 mL) Insulin Pen 30 unit SUBCUT BEDTIME RF: 0 No Action omeprazole magnesium [Prilosec OTC] 20 mg tablet,delayed release (DR/EC) 20 mg PO DAILY Qty: 60 RF: 2 dexamethasone [Decadron] 4 mg tablet 4 mg PO TID Qty: 60 RF: 0 oxycodone 10 mg tablet 10 mg PO Q4H PRN (Reason: pain) Qty: 30 RF: 0 Follow up/Referrals: Tristin Jacobo MD [Primary Care Provider] - (PLEASE CALL DR. JACOBO'S OFFICE TO SCHEDULE A FOLLOW UP APPOINTMENT.) Discharge Health Status Health Concerns: lower GI bleeding from prostate biopsy site. Diet/Activity/Treatments Diet: Diet as Tolerated Activity: As tolerated Visit Report/Discharge Packet Instructions: DI for Biopsy -- Prostate, DI for Gastrointestinal Bleeding Visit Report Forms: Patient Portal/API, Stroke Signs & Symptoms Discharge Data Primary Care Provider: Tristin Jacobo Attending Provider: Ken Gomez Admit Date/Time: 03/22/20 14:47 Discharges patient from system. Discharge Date/Time: 03/23/20 13:50 Quality VTE Deep Vein Thrombosis/Pulmonary Embolism Present on Admission: No
--- NOTE | 2020-03-23 14:07 | PC.NURSE ---
SHIFT SUMMARY/DISCHARGE; PATIENT HAD 1 MELENA, MAROON COLORED MED SOFT STOOL THIS AM. DR. THOMPSON NOTIFIED OF SAME. H&H REPEATED AT NOON, STABLE. PATIENT DENIES PAIN ALL SHIFT. MRI UNABLE TO TAKE PATIENT FOR STUDY ORDERED DUE TO MECHANICAL HEART VALVE WITHOUT DOCUMENTED HISTORY OF TYPE ETC. DR. THOMPSON NOTIFIED OF SAME. PATIENT TO KEEP MRI SCHEDULED AT [facility]. PATIENT REPORTS HIS WARFARIN IS MANAGED BY OFFICE AND HE WILL CALL TO SCHEDULE AN APPOINTMENT. HE HAS A F/U APPT WITH DR LOPEZ ALREADY IN PLACE, THAT HE WILL KEEP. PATIENT STATES IT WILL LIKELY BE DR. LOPEZ WHO MAKES THE REFERRAL TO ONCOLOGY. REVIEWED HANDOUTS WITH PATIENT, PATIENT CONFIRMS UNDERSTANDING OF S/SX'S WARRANTING RETURN TO ER. PATIENT TAKEN BY WC TO VEHICLE BY THIS MANAGER RADIATION WITH SPOUSE ESCORT IN NO S/SX'S OF DISTRESS.
== END 2020-03-23 13:50 | disposition home or self-care (01) ==
LOC: ED 14:17 → AC 14:48
PROVIDERS: Nurse Practitioner Family; Surgery; Admitting Provider Internal Medicine; Emergency Provider Emergency Medicine; Family Provider Family Medicine; PCP Family Medicine; Referring Provider Emergency Medicine; Visit Provider Internal Medicine
PROC: 0DJD8ZZ Inspection of Lower Intestinal Tract, Via Natural or Artificial Opening Endoscopic (ICD-10-PCS; CPT 45378; principal; 2020-03-22 17:15)
DX: K92.1 Melena (principal); M79.662 Pain in left lower leg; Z79.01 Long term (current) use of anticoagulants; C61 Malignant neoplasm of prostate; K57.30 Diverticulosis of large intestine without perforation or abscess without bleeding; I10 Essential (primary) hypertension; I25.10 Atherosclerotic heart disease of native coronary artery without angina pectoris; I48.91 Unspecified atrial fibrillation; E11.9 Type 2 diabetes mellitus without complications; Z79.4 Long term (current) use of insulin; Z11.59 Encounter for screening for other viral diseases
CPT/HCPCS: 45334; 36415; 71260; 74177; 80048; 80053; 80076; 81003; 81015; 82962; 83036; 83605; 83735; 85014; 85018; 85025; 85379; 85610; 85730; 87086; 87635; 93005; 93010; 96361; 96372; 96374; 96375; 99285; G0378; C9113; J2250; J3010; Q9967

== ENCOUNTER → 2020-03-25 10:43 | Outpatient (CLI) | payer MEDICARE, OTHER, SELFPAY ==
[2020-03-22 16:08] VITALS: BMI 31.0
--- NOTE | 2020-03-25 10:47 | DI.NM.S_ITS ---
PROCEDURE: NM BONE SCAN WHOLE BODY RADIOPHARMACEUTICAL: 20.10 mCi Tc-99m MDP IV. INDICATIONS: possible bone metastases TECHNIQUE: Delayed whole-body scintigrams were obtained approximately 3-4 hours after intravenous injection of radiotracer. Anterior and posterior views were acquired from vertex to feet. . COMPARISON: None. FINDINGS: Relative intense radiotracer uptake identified in the left maxilla, right occiput, cervical spine, thoracic spine, lumbar spine, sacrum, bony pelvis, ribs bilaterally, scapulae bilaterally, humeri bilaterally in femurs bilaterally compatible with extensive skeletal metastatic disease. IMPRESSION: Extensive skeletal metastatic disease. Dictated by: Pamela Escalona MD, PhD on 03/25/2020 at 15:14 Approved by: Pamela Escalona MD, PhD on 03/25/2020 at 15:16
== END ==
PROVIDERS: Family Provider Family Medicine; PCP Family Medicine; Referring Provider Specialist; Visit Provider Specialist
DX: C61 Malignant neoplasm of prostate (principal); C79.51 Secondary malignant neoplasm of bone; R97.20 Elevated prostate specific antigen [PSA]
CPT/HCPCS: 78306; A9503

== ENCOUNTER → 2020-04-30 10:36 | Outpatient (CLI) | payer MEDICARE, OTHER, SELFPAY ==
[2020-03-31 12:02] VITALS: BMI 31.0
[2020-04-30 12:34] LABS: Prostate Specific Antigen 9.55 ng/mL (0.10-4.00)
== END ==
PROVIDERS: Family Provider Family Medicine; PCP Nurse Practitioner; Referring Provider Specialist; Visit Provider Specialist
DX: C61 Malignant neoplasm of prostate (principal); C79.51 Secondary malignant neoplasm of bone
CPT/HCPCS: 36415; 84153

== ENCOUNTER → 2020-06-04 14:09 | Outpatient (CLI) | payer MEDICARE, OTHER, SELFPAY ==
[2020-03-31 12:02] VITALS: BMI 31.0
[2020-06-04 16:38] LABS: Prostate Specific Antigen 2.36 ng/mL (0.10-4.00)
== END ==
PROVIDERS: Family Provider Family Medicine; PCP Nurse Practitioner; Referring Provider Specialist; Visit Provider Specialist
DX: C61 Malignant neoplasm of prostate (principal); C79.51 Secondary malignant neoplasm of bone
CPT/HCPCS: 36415; 84153

== ENCOUNTER → 2020-07-13 08:55 | Outpatient (CLI) | payer MEDICARE, OTHER, SELFPAY ==
[2020-06-10 14:09] VITALS: BMI 31.0
[2020-07-13 10:53] LABS: Prostate Specific Antigen 0.388 ng/mL (0.10-4.00)
== END ==
PROVIDERS: Family Provider Family Medicine; PCP Nurse Practitioner; Referring Provider Specialist; Visit Provider Specialist
DX: C61 Malignant neoplasm of prostate (principal)
CPT/HCPCS: 36415; 84153

== ENCOUNTER → 2020-08-10 10:49 | Outpatient (CLI) | payer MEDICARE, OTHER, SELFPAY ==
[2020-06-10 14:09] VITALS: BMI 31.0
[2020-08-10 12:11] LABS: Estimated Glomerular Filt Rate > 60.0 mL/min (>60)
[2020-08-10 12:42] LABS: Prostate Specific Antigen 0.182 ng/mL (0.10-4.00)
== END ==
PROVIDERS: Family Provider Family Medicine; PCP Nurse Practitioner; Referring Provider Specialist; Visit Provider Specialist
DX: C61 Malignant neoplasm of prostate (principal); C79.51 Secondary malignant neoplasm of bone; N28.9 Disorder of kidney and ureter, unspecified
CPT/HCPCS: 36415; 82565; 84153

== ENCOUNTER → 2020-08-23 13:54 | Outpatient (CLI) | payer MEDICARE, OTHER, SELFPAY ==
[2020-08-13 14:51] VITALS: BMI 31.0
[2020-08-28 08:28] LABS: Percent Free Testosterone 2.16 % (1.50-4.20); Testosterone Free 0.32 ng/dL (5.00-21.00)
== END ==
PROVIDERS: Family Provider Family Medicine; PCP Nurse Practitioner; Referring Provider Specialist; Visit Provider Specialist
DX: N40.0 Benign prostatic hyperplasia without lower urinary tract symptoms (principal); C61 Malignant neoplasm of prostate; C79.51 Secondary malignant neoplasm of bone
CPT/HCPCS: 36415; 82575; 84153; 84402; 84403

== ENCOUNTER → 2020-08-27 11:52 | Outpatient (CLI) | payer MEDICARE, OTHER, SELFPAY ==
[2020-08-13 14:51] VITALS: BMI 31.0
[2020-08-27 12:47] LABS: Creatinine, Serum (CRCL) 0.97 mg/dL (0.66-1.25)
[2020-08-27 12:52] LABS: Collection Time Urine 27 Hours; Creat Clearance, Corrected 45.6 mL/MIN; Creatinine Clearance Urine 56.8 mL/MIN; Creatinine Urine Random 39.2 mg/dL; Patient Height Urine 69 inches; Patient Weight Urine 222 lbs; Total Volume Urine 2275 mL
== END ==
PROVIDERS: Family Provider Family Medicine; PCP Nurse Practitioner; Referring Provider Specialist; Visit Provider Specialist
DX: R94.4 Abnormal results of kidney function studies (principal)
CPT/HCPCS: 82575

== ENCOUNTER → 2020-09-06 09:26 | Outpatient (CLI) | payer MEDICARE, OTHER, SELFPAY ==
[2020-08-13 14:51] VITALS: BMI 31.0
== END ==
PROVIDERS: Family Provider Family Medicine; PCP Nurse Practitioner; Referring Provider Specialist; Visit Provider Specialist
DX: R97.20 Elevated prostate specific antigen [PSA] (principal)
CPT/HCPCS: 36415; 84153

== ENCOUNTER → 2020-10-25 16:35 | Outpatient (CLI) | payer MEDICARE, OTHER, SELFPAY ==
[2020-09-13 15:05] VITALS: BMI 31.0
--- NOTE | 2020-10-25 16:37 | DI.RAD.S_ITS ---
PROCEDURE: XR FINGER RT MIN 2V INDICATIONS: crush injury TECHNIQUE: AP hand, 2 views of the right 5th finger(s) acquired. COMPARISON: None. FINDINGS: Bones: Nondisplaced volar base fracture of the 5th finger distal phalanx with minimal intra-articular extension. Background polyarticular degenerative changes throughout the imaged right hand. Findings are most pronounced in the distal interphalangeal joints. There also moderate degenerative changes of the right thumb. Mild degenerative changes of the radiocarpal joint. No fractures or dislocations. No suspicious bony lesions. Soft tissues: No suspicious soft tissue calcifications. IMPRESSION: 1. Nondisplaced volar base of the right 5th finger distal phalanx with minimal intra-articular extension. 2. Moderate polyarticular background degenerative changes of the right hand most pronounced in the distal interphalangeal joints of the 2nd through 5th fingers and interphalangeal joint of the right thumb. Dictated by: Alex Burnett M.D. on 10/25/2020 at 17:58 Approved by: Alex Burnett M.D. on 10/25/2020 at 18:02
== END ==
PROVIDERS: Family Provider Family Medicine; PCP Nurse Practitioner; Referring Provider Physician Assistant; Visit Provider Physician Assistant
DX: S62.666A Nondisplaced fracture of distal phalanx of right little finger, initial encounter for closed fracture (principal); S67.21XA Crushing injury of right hand, initial encounter; S61.219A Laceration without foreign body of unspecified finger without damage to nail, initial encounter; X58.XXXA Exposure to other specified factors, initial encounter
CPT/HCPCS: 73140

== ENCOUNTER → 2020-11-10 11:43 | Outpatient (CLI) | payer MEDICARE, OTHER, SELFPAY ==
[2020-11-10 11:34] VITALS: BMI 31.0
[2020-11-10 14:08] LABS: Prostate Specific Antigen 0.324 ng/mL (0.10-4.00)
== END ==
PROVIDERS: Family Provider Family Medicine; PCP Nurse Practitioner; Referring Provider Specialist; Visit Provider Specialist
DX: C61 Malignant neoplasm of prostate (principal); C79.51 Secondary malignant neoplasm of bone; Z80.42 Family history of malignant neoplasm of prostate; Z79.899 Other long term (current) drug therapy
CPT/HCPCS: 36415; 84153; 96372; 96402; 99214; J0897; J9155

== ENCOUNTER → 2020-12-14 10:43 | Outpatient (CLI) | payer MEDICARE, OTHER, SELFPAY ==
[2020-11-10 11:34] VITALS: BMI 31.0
[2020-12-14 12:23] LABS: Prostate Specific Antigen 0.547 ng/mL (0.10-4.00)
== END ==
PROVIDERS: Family Provider Family Medicine; PCP Family Medicine; Referring Provider Specialist; Visit Provider Specialist
DX: C61 Malignant neoplasm of prostate (principal); C79.51 Secondary malignant neoplasm of bone; Z80.42 Family history of malignant neoplasm of prostate; Z79.899 Other long term (current) drug therapy
CPT/HCPCS: 36415; 51798; 81002; 84153; 96372; 96402; 99214; J0897; J9155

== ENCOUNTER → 2021-01-19 10:44 | Outpatient (CLI) | payer MEDICARE, OTHER, SELFPAY ==
[2020-11-10 11:34] VITALS: BMI 31.0
--- NOTE | 2021-01-19 | DI.MRI.S_ITS ---
PROCEDURE: MR THORACIC SPINE WO/W CON INDICATIONS: Portal vein thrombosis TECHNIQUE: Noncontrast sagittal T1 spin echo and T2 fast spin echo, sagittal STIR, axial T1 and T2 fast spin echo through the thoracic spine. After the administration of contrast, axial and sagittal T1 spin echo with fat saturation through the thoracic spine. COMPARISON: [facility], MR, MR LUMBAR SPINE WO/W CON, 01/19/2021, 11:56. [facility], MR, MR THORACIC SPINE WITH/WITHOUT CONTRAST, 03/30/2020, 8:38. [facility], CT, CT CHEST ABD PEL W CON, 03/22/2020, 13:37. FINDINGS: Image quality: This examination is limited by involuntary motion artifact. Alignment and curvature: Accentuated thoracic kyphosis is seen. No focal AP alignment abnormality is seen. Marrow: Extensive bone marrow lesions are seen, which are hypointense on T1 weighted imaging and largely hypointense on T2 weighted imaging and STIR imaging. Several of these lesions demonstrate mild enhancement. Compared to the 03/30/2020 examination, the bone marrow lesions are similar in extent, although they demonstrate decreased STIR signal and overall decreased enhancement. Spinal cord: Visualized spinal cord is of normal signal and size, without abnormal enhancement. Paraspinous soft tissues: On the prior examination, there was seen enhancing paraspinous mass emanating from the right aspect of the T12 level. This appears improved compared to the prior examination. Miscellaneous: Generalized degenerative changes are seen. From sternotomy wires can be seen. IMPRESSION: Interval improvement in the patient's known bony metastatic disease, with overall decreased STIR signal and enhancement. The previously seen lesion along the right aspect of the T12 vertebral body is also improved. Dictated by: Jose Gaspar M.D. on 01/19/2021 at 13:04 Approved by: Jose Gaspar M.D. on 01/19/2021 at 13:08
--- NOTE | 2021-01-19 | DI.MRI.S_ITS ---
PROCEDURE: MR PELIS WO/W CON INDICATIONS: Portal vein thrombosis TECHNIQUE: Coronal HASTE, sagittal T2 FSE, axial T1 FSE, axial and coronal nonbreath-hold T2 FSE. Axial dynamic VIBE during administration of contrast. Post-contrast axial and coronal VIBE/2-D FLASH with fat saturation from the iliac crests to the symphysis. Optional diffusion weighted imaging and ADC may be performed. COMPARISON: [facility], , MR PELVIS WITH/WITHOUT CONTRAST, 03/30/2020, 8:05. FINDINGS: Image quality: Excellent. Bowel and peritoneum: No pathologic free pelvic fluid. Inferior colon and small bowel loops are normal in caliber. Genitourinary system: There is borderline bladder wall thickening without discrete bladder wall mass. Distal ureters are non distended. Evaluation of prostate gland is limited due to study technique. Nodes and vessels: No pathologic pelvic or inguinal adenopathy by size criteria. Iliac vessels are normal in caliber. Soft tissues: No inguinal hernias. Bones: There are numerous metastatic lesions scattered throughout bony pelvis and in bilateral proximal femur with interval decrease signal intensity on stir sequences and show hypointense signal on T1 weighted sequences and is suggestive of post treatment changes. No pathologic fracture is seen. Previously described paravertebral mass at L5 level with extraosseous soft tissue component causing left L5 nerve root compression is no longer seen and may represent post treatment changes. IMPRESSION: 1. Numerous metastatic lesions scattered throughout bony pelvis , bilateral proximal femur and in visualized lower lumbar spine vertebral bodies with interval decreased stir signal intensity within these lesions and show no significant contrast enhancement suggestive of response to treatment. 2. No new metastatic bony lesion is seen. No pathologic fracture. 3. Previously described prevertebral enhancing soft tissue mass at L5 level with mass effect on left neural foramen is no longer seen and is suggestive of response to treatment. Dictated by: Rodney Beavers M.D. on 01/19/2021 at 16:41 Approved by: Rodney Beavers M.D. on 01/19/2021 at 16:51
--- NOTE | 2021-01-19 | DI.MRI.S_ITS ---
PROCEDURE: MR LUMBAR SPINE WO/W CON INDICATIONS: Portal vein thrombosis TECHNIQUE: Noncontrast sagittal T1 spin echo and T2 fast spin echo, sagittal STIR, axial T1 and T2 fast spin echo through the lumbar spine. In cases with scoliosis, additional coronal T2 fast spin echo may be performed. After the administration of contrast, sagittal and axial T1 spin echo with fat saturation through the lumbar spine. COMPARISON: [facility], MR, MR THORACIC SPINE WO/W CON, 01/19/2021, 12:11. [facility], MR, MR LUMBAR SPINE WITH/WITHOUT CONTRAST, 03/24/2020, 20:35. FINDINGS: Image quality: This examination is limited by involuntary motion artifact. Alignment and curvature: There is normal bony alignment. Marrow: Numerous areas of abnormal bone marrow signal are seen, with decreased T1 weighted signal and increased T2 weighted signal, with areas of increased enhancement. These are seen involving each visualized vertebral body, although are overall worst at the T12, L3, and L5 levels. Compared to 2019, the extent of disease is relatively similar. Spinal cord: Conus medullaris terminates at the L1-L2 level. Visualized spinal cord demonstrates normal signal, without suspicious enhancement. Paraspinous soft tissues: On the prior examination, there is described enhancing mass involving the right aspect of the T12 vertebral body. This is improved compared to the prior. On the prior examination, there was described enhancing mass adjacent to the L4 spinous process. There is a mild degree of abnormal enhancement seen at this site, yet this appears clearly improved compared to the prior. T12-L1: No significant abnormality is seen. L1-L2: The disc height is well-preserved. Loss of disc signal is seen at this level. Mild generalized disc bulge is seen. Mild facet joint hypertrophy is seen. Minimal to mild bilateral neural foraminal narrowing can be seen. No significant central canal narrowing is seen. Stable from the prior study. L2-L3: The disc height is well-preserved. Loss of disc signal is seen at this level. Mild generalized disc bulge is seen. Moderate facet joint hypertrophy is seen. Moderate bilateral neural foraminal narrowing can be seen, left worse than right. Mild central canal narrowing is seen. No significant change from the prior. L3-L4: The disc height is well-preserved. Loss of disc signal is seen at this level. Moderate generalized disc bulge is seen. Moderate to prominent facet hypertrophy is seen. There is moderate bilateral neural foraminal narrowing seen at this level. Moderate central canal narrowing is seen. When comparison is made with the prior images, these findings are similar. L4-L5: Mild loss of disc height is seen. Loss of disc signal is seen. Moderate to prominent disc bulge is seen, which is eccentric to the right. Moderate to prominent facet hypertrophy is seen at this level. There is at least moderate right-sided and [id number] left-sided neural foraminal narrowing seen. Moderate central canal narrowing is seen. When comparison is made with the prior images, these findings are similar. L5-S1: [id number] loss of disc height and disc signal can be seen. Mild to moderate disc bulge is seen, which is eccentric to the right. There is moderate right-sided and moderate to prominent left-sided facet hypertrophy seen. Moderate to severe bilateral neural foraminal narrowing can be seen, left worse than right. There is a degree of compression seen upon the exiting nerve roots. No significant central canal narrowing is seen. IMPRESSION: Multilevel degenerative changes are seen, which are similar to the prior examination and are worst at the L5-S1 level. Extensive bony metastatic disease, which is similar to the 03/24/2020 examination. On the prior examination, there was seen enhancing masses involving the right aspect of T12 and along the posterior paraspinous soft tissues involving the L4 spinous process. These are improved compared to the prior. Please correlate with interval treatment history. Dictated by: Jose Gaspar M.D. on 01/19/2021 at 12:55 Approved by: Jose Gaspar M.D. on 01/19/2021 at 13:04
== END ==
PROVIDERS: PCP Family Medicine; Referring Provider Specialist; Visit Provider Specialist
DX: C61 Malignant neoplasm of prostate (principal); C79.51 Secondary malignant neoplasm of bone; I81 Portal vein thrombosis; M47.817 Spondylosis without myelopathy or radiculopathy, lumbosacral region; M47.816 Spondylosis without myelopathy or radiculopathy, lumbar region
CPT/HCPCS: 72157; 72158; 72197

== ENCOUNTER → 2021-02-09 12:23 | Outpatient (CLI) | payer OTHER, MEDICARE, SELFPAY ==
[2021-02-09 12:09] VITALS: BMI 31.0
[2021-02-09 13:59] LABS: Specimen Label KIT TEST
== END ==
PROVIDERS: PCP Family Medicine; Referring Provider Specialist; Visit Provider Specialist
DX: C61 Malignant neoplasm of prostate (principal); C79.51 Secondary malignant neoplasm of bone; R97.20 Elevated prostate specific antigen [PSA]
CPT/HCPCS: 36415

== ENCOUNTER → 2021-03-24 09:03 | Outpatient (CLI) | payer OTHER, MEDICARE, SELFPAY ==
[2021-02-09 12:09] VITALS: BMI 31.0
[2021-03-24 09:32] LABS: Add Manual Diff / Slide Review NO; Basophils Absolute Auto 100 /uL (0-100); Eosinophils Absolute Auto 100 /uL (0-450); Eosinophils Percent Auto 2.4 % (2-4); Hematocrit 39.2 % (41-53); Hemoglobin 13.2 g/dL (13.5-17.5); Lymphocytes Absolute Auto 1000 /uL (1100-4500); Mean Corpuscular HGB Conc 33.7 % (30-36); Mean Corpuscular Hemoglobin 29.2 PG (26-34); Mean Corpuscular Volume 86.6 fL (80-100); Monocytes Absolute Auto 400 /uL (0-900); Monocytes Percent Auto 7.6 % (3-14); Neutrophils Absolute Auto 4100 /uL (1500-7000); Platelet Count 209 X10^3/uL (150-400); Red Blood Cell Count 4.52 X10^6/uL (4.5-5.9); Red Cell Distribution Width 13.9 % (11.6-14.8); White Blood Cell Count 5.7 X10^3/uL (4.5-11.0)
[2021-03-24 09:44] LABS: Alanine Aminotransferase 30 IU/L (<50); Albumin Globulin Ratio 1.4 (1.0-2.8); Alkaline Phosphatase 96 U/L (38-126); Aspartate Aminotransferase 37 IU/L (17-59); BUN Creatinine Ratio 18.9 (6-22); Bilirubin Total 0.7 mg/dL (0.2-1.3); Blood Urea Nitrogen 17 mg/dL (9-20); Carbon Dioxide 28 mmol/L (22-32); Chloride 104 mmol/L (98-107); Estimated Glomerular Filt Rate > 60.0 mL/min (>60); Globulin 2.9 g/dL (1.7-4.1); Glucose 172 mg/dL (80-110); HEMOLYSIS < 15 (0-50); Lactate Dehydrogenase 561 U/L (313-618); Potassium 4.3 mmol/L (3.4-5.1); Sodium 136 mmol/L (137-145); Total Protein 6.9 g/dL (6.3-8.2)
[2021-03-24 10:34] LABS: Prostate Specific Antigen 1.39 ng/mL (0.10-4.00)
[2021-03-25 11:16] LABS: PSA Free % 21.3 % (.); PSA, Total 1.5 ng/mL (0.0-4.0)
== END ==
PROVIDERS: Internal Medicine Medical Oncology; PCP Family Medicine; Referring Provider Specialist; Visit Provider Specialist
DX: C61 Malignant neoplasm of prostate (principal); C79.51 Secondary malignant neoplasm of bone; R97.20 Elevated prostate specific antigen [PSA]; I10 Essential (primary) hypertension; Z80.42 Family history of malignant neoplasm of prostate
CPT/HCPCS: 36415; 80053; 83615; 84153; 84154; 85025